=== PATIENT | female | born 1950 | race Caucasian/White ===

== ENCOUNTER 2021-09-25 14:30 | Inpatient (IN) | payer MEDICARE, OTHER, MEDICAID ==
[2021-09-25] MEDS ORDERED: Sodium Chloride 0.9% 10 ML Syringe FLUSH PRN (15:06)
[2021-09-25] MEDS ORDERED: Albuterol 0.083% 2.5 MG/3 ML Neb Soln NEB ONE (15:30)
[2021-09-25] MEDS ORDERED: Albuterol/Ipratropium 3.0-0.5 MG/3 ML Neb Soln NEB ONE (16:22)
[2021-09-25] MEDS ORDERED: methylPREDNISolone Sodium Succinate 125 MG/2 ML SDV IVPUSH ONE (17:14)
[2021-09-25 18:21] LABS: HEMOGLOBIN A1C 7.2 %
[2021-09-25] MEDS: Azithromycin 500 MG in Sodium Chloride 0.9% 250 ML IV SCH (19:02)
[2021-09-25] MEDS: methylPREDNISolone Sodium Succinate 125 MG/2 ML SDV IVPUSH SCH (19:04)
[2021-09-25] MEDS: Insulin Regular, Human 100 Units/ML 3 ML Vial SUBCUT SCH (19:04)
[2021-09-25] MEDS ORDERED: Furosemide 20 MG Tab PO PRN (21:58)
[2021-09-25] MEDS ORDERED: LORazepam 1 MG Tab PO PRN (21:58)
[2021-09-25] MEDS: atorvaSTATin 40 MG Tab PO SCH (22:27)
[2021-09-25] MEDS: oxyCODONE ER 10 MG TAB.ER PO PRN (22:27)
[2021-09-25] MEDS: Dabigatran 75 MG Cap PO SCH (22:28)
[2021-09-26] MEDS: methylPREDNISolone Sodium Succinate 125 MG/2 ML SDV IVPUSH SCH ×3 (02:29→17:24)
[2021-09-26] MEDS: metFORMIN 500 MG Tab PO SCH ×2 (06:16→17:23)
[2021-09-26] MEDS: Pantoprazole 40 MG Tab.CR PO SCH (06:17)
[2021-09-26] MEDS: Levothyroxine 75 MCG Tab PO SCH (06:17)
[2021-09-26] MEDS ORDERED: Magnesium Sulfate/Water 2 GM in Premix Bag 1 BAG IV ONE (07:46)
[2021-09-26] MEDS: Albuterol/Ipratropium 3.0-0.5 MG/3 ML Neb Soln NEB PRN ×3 (08:33→19:47)
[2021-09-26] MEDS: Insulin Regular, Human 100 Units/ML 3 ML Vial SUBCUT SCH ×3 (08:50→18:35)
[2021-09-26] MEDS: Dabigatran 75 MG Cap PO SCH ×2 (08:52→20:21)
[2021-09-26] MEDS: atorvaSTATin 40 MG Tab PO SCH (08:54)
[2021-09-26] MEDS: Metoprolol Succinate 25 MG Tab.ER PO SCH (08:55)
[2021-09-26] MEDS: Montelukast 10 MG Tab PO SCH (08:55)
[2021-09-26] MEDS: PARoxetine 20 MG Tab PO SCH (08:55)
[2021-09-26] MEDS ORDERED: Enoxaparin 40 MG/0.4 ML Syringe SUBCUT SCH (09:00)
[2021-09-26] MEDS: Sodium Chloride 0.9% 1,000 ML IV SCH ×2 (10:29→23:01)
[2021-09-26] MEDS: Codeine/guaiFENesin 10-100 MG/5 ML Syrup 5 ML Cup PO PRN ×3 (11:10→20:24)
[2021-09-26] MEDS: oxyCODONE ER 10 MG TAB.ER PO PRN ×2 (12:12→20:23)
[2021-09-26] MEDS: Azithromycin 500 MG in Sodium Chloride 0.9% 250 ML IV SCH (17:23)
[2021-09-26] MEDS: Temazepam 7.5 MG Cap PO PRN (20:23)
[2021-09-27] MEDS: methylPREDNISolone Sodium Succinate 125 MG/2 ML SDV IVPUSH SCH ×2 (02:46→11:00)
[2021-09-27] MEDS: metFORMIN 500 MG Tab PO SCH ×2 (06:06→17:48)
[2021-09-27] MEDS: Levothyroxine 75 MCG Tab PO SCH (06:07)
[2021-09-27] MEDS: Pantoprazole 40 MG Tab.CR PO SCH (06:07)
[2021-09-27] MEDS: Albuterol/Ipratropium 3.0-0.5 MG/3 ML Neb Soln NEB PRN ×2 (08:14→20:27)
[2021-09-27] MEDS: Metoprolol Succinate 25 MG Tab.ER PO SCH (08:31)
[2021-09-27] MEDS: Dabigatran 75 MG Cap PO SCH ×2 (08:31→19:36)
[2021-09-27] MEDS: Montelukast 10 MG Tab PO SCH (08:31)
[2021-09-27] MEDS: atorvaSTATin 40 MG Tab PO SCH (08:31)
[2021-09-27] MEDS: PARoxetine 20 MG Tab PO SCH (08:32)
[2021-09-27] MEDS: Insulin Regular, Human 100 Units/ML 3 ML Vial SUBCUT SCH ×3 (08:32→18:15)
[2021-09-27] MEDS: Codeine/guaiFENesin 10-100 MG/5 ML Syrup 5 ML Cup PO PRN ×2 (11:00→19:36)
[2021-09-27] MEDS: Benzocaine/Cetylpyridinium/Menthol Lozenge MUCMEM PRN ×2 (12:02→19:36)
[2021-09-27] MEDS: Azithromycin 250 MG Tab PO SCH (17:49)
[2021-09-27] MEDS: oxyCODONE ER 10 MG TAB.ER PO PRN (17:54)
[2021-09-27] MEDS: methylPREDNISolone Sodium Succinate 40 MG/1 ML SDV IVPUSH SCH (19:36)
[2021-09-27] MEDS: Temazepam 7.5 MG Cap PO PRN (21:08)
[2021-09-28] MEDS: Dabigatran 75 MG Cap PO SCH ×3 (00:45→20:13)
[2021-09-28] MEDS: methylPREDNISolone Sodium Succinate 40 MG/1 ML SDV IVPUSH SCH ×3 (00:45→20:14)
[2021-09-28] MEDS: Levothyroxine 75 MCG Tab PO SCH (05:29)
[2021-09-28] MEDS: Pantoprazole 40 MG Tab.CR PO SCH (05:29)
[2021-09-28] MEDS: Codeine/guaiFENesin 10-100 MG/5 ML Syrup 5 ML Cup PO PRN ×3 (05:46→20:15)
[2021-09-28] MEDS: metFORMIN 500 MG Tab PO SCH ×2 (07:00→16:28)
[2021-09-28] MEDS: Benzocaine/Cetylpyridinium/Menthol Lozenge MUCMEM PRN ×4 (08:36→20:13)
[2021-09-28] MEDS: Montelukast 10 MG Tab PO SCH (08:38)
[2021-09-28] MEDS: atorvaSTATin 40 MG Tab PO SCH (08:40)
[2021-09-28] MEDS: oxyCODONE ER 10 MG TAB.ER PO PRN ×2 (08:41→20:13)
[2021-09-28] MEDS: Metoprolol Succinate 25 MG Tab.ER PO SCH (08:45)
[2021-09-28] MEDS: PARoxetine 20 MG Tab PO SCH (08:47)
[2021-09-28] MEDS: Insulin Regular, Human 100 Units/ML 3 ML Vial SUBCUT SCH ×3 (08:48→18:13)
[2021-09-28] MEDS: Albuterol/Ipratropium 3.0-0.5 MG/3 ML Neb Soln NEB PRN ×2 (09:09→16:34)
[2021-09-28] MEDS: Sodium Chloride 0.9% Inhalation Soln 3 ML Neb INH PRN ×2 (11:30→18:17)
[2021-09-28] MEDS: Azithromycin 250 MG Tab PO SCH (18:12)
[2021-09-28] MEDS: Temazepam 7.5 MG Cap PO PRN (20:26)
[2021-09-29] MEDS: Levothyroxine 75 MCG Tab PO SCH (05:54)
[2021-09-29] MEDS: Pantoprazole 40 MG Tab.CR PO SCH (05:54)
[2021-09-29] MEDS: Benzocaine/Cetylpyridinium/Menthol Lozenge MUCMEM PRN ×4 (06:10→21:24)
[2021-09-29] MEDS: Codeine/guaiFENesin 10-100 MG/5 ML Syrup 5 ML Cup PO PRN ×2 (06:10→14:08)
[2021-09-29] MEDS: metFORMIN 500 MG Tab PO SCH ×2 (07:05→17:40)
[2021-09-29] MEDS: Docusate Sodium 100 MG Cap PO PRN ×2 (08:50→21:21)
[2021-09-29] MEDS: Dabigatran 75 MG Cap PO SCH ×2 (08:51→21:23)
[2021-09-29] MEDS: Montelukast 10 MG Tab PO SCH (08:51)
[2021-09-29] MEDS: Metoprolol Succinate 25 MG Tab.ER PO SCH (08:52)
[2021-09-29] MEDS: PARoxetine 20 MG Tab PO SCH (08:52)
[2021-09-29] MEDS: atorvaSTATin 40 MG Tab PO SCH (08:52)
[2021-09-29] MEDS: methylPREDNISolone Sodium Succinate 40 MG/1 ML SDV IVPUSH SCH (08:53)
[2021-09-29] MEDS: Insulin Regular, Human 100 Units/ML 3 ML Vial SUBCUT SCH ×2 (08:54→14:03)
[2021-09-29] MEDS ORDERED: Acetaminophen 325 MG Tab PO PRN (09:33)
[2021-09-29] MEDS: Albuterol/Ipratropium 3.0-0.5 MG/3 ML Neb Soln NEB PRN ×3 (10:07→20:11)
[2021-09-29] MEDS: Sodium Chloride 0.9% Inhalation Soln 3 ML Neb INH PRN ×2 (12:11→18:09)
[2021-09-29] MEDS: oxyCODONE ER 10 MG TAB.ER PO PRN (17:39)
[2021-09-29] MEDS: Azithromycin 250 MG Tab PO SCH (17:39)
[2021-09-29] MEDS: Temazepam 7.5 MG Cap PO PRN (21:21)
[2021-09-30] MEDS: Pantoprazole 40 MG Tab.CR PO SCH (05:57)
[2021-09-30] MEDS: Levothyroxine 75 MCG Tab PO SCH (05:57)
[2021-09-30] MEDS: Codeine/guaiFENesin 10-100 MG/5 ML Syrup 5 ML Cup PO PRN (06:04)
[2021-09-30] MEDS: Benzocaine/Cetylpyridinium/Menthol Lozenge MUCMEM PRN ×2 (06:04→08:26)
[2021-09-30] MEDS: metFORMIN 500 MG Tab PO SCH (06:41)
[2021-09-30] MEDS ORDERED: predniSONE 20 MG Tab PO SCH (07:00)
[2021-09-30] MEDS: Docusate Sodium 100 MG Cap PO PRN (08:27)
[2021-09-30] MEDS: Dabigatran 75 MG Cap PO SCH (08:27)
[2021-09-30] MEDS: PARoxetine 20 MG Tab PO SCH (08:28)
[2021-09-30] MEDS: Montelukast 10 MG Tab PO SCH (08:28)
[2021-09-30] MEDS: atorvaSTATin 40 MG Tab PO SCH (08:28)
[2021-09-30] MEDS: Metoprolol Succinate 25 MG Tab.ER PO SCH (08:28)
[2021-09-30] MEDS: Albuterol/Ipratropium 3.0-0.5 MG/3 ML Neb Soln NEB PRN (08:41)
[2021-09-30] MEDS: Insulin Regular, Human 100 Units/ML 3 ML Vial SUBCUT SCH ×2 (09:00→13:41)
[2021-09-30] MEDS: oxyCODONE ER 10 MG TAB.ER PO PRN (09:26)
== END 2021-09-30 14:25 | disposition home or self-care (01) | DRG 193 ==
LOC: JD.ED 14:30 → JD.MS 17:29
PROVIDERS: ADMIT Internal Medicine; ATTEND Internal Medicine
DX: J18.9 Pneumonia, unspecified organism (principal); J96.21 Acute and chronic respiratory failure with hypoxia; J44.0 Chronic obstructive pulmonary disease with (acute) lower respiratory infection; J44.1 Chronic obstructive pulmonary disease with (acute) exacerbation; Z68.42 Body mass index [BMI] 45.0-49.9, adult; Z88.1 Allergy status to other antibiotic agents; E11.9 Type 2 diabetes mellitus without complications; Z88.8 Allergy status to other drugs, medicaments and biological substances; E66.9 Obesity, unspecified; F41.9 Anxiety disorder, unspecified; F32.A Depression, unspecified; N18.32 Chronic kidney disease, stage 3b; G47.30 Sleep apnea, unspecified; E03.9 Hypothyroidism, unspecified; K58.9 Irritable bowel syndrome, unspecified; Z20.822 Contact with and (suspected) exposure to COVID-19; Z86.718 Personal history of other venous thrombosis and embolism; Z79.899 Other long term (current) drug therapy; Z88.0 Allergy status to penicillin; Z79.01 Long term (current) use of anticoagulants; Z99.81 Dependence on supplemental oxygen; Z88.2 Allergy status to sulfonamides; Z79.890 Hormone replacement therapy; Z79.84 Long term (current) use of oral hypoglycemic drugs
CPT/HCPCS: 36415; 71045; 71045-26; 71250; 71250-26; 80048; 80053; 82947; 83036; 83735; 84145; 85025; 86140; 94640; 94667; 94668; 94760; 94761; 97116-GP; 97162-GP; 99222; 99233; 99239; A9270-GY; J0456; J1815-GY; J2920; J2930; J3475; J7030; J7050; J7512; J7620-GY; U0002

== ENCOUNTER 2022-01-05 12:36 | Emergency (ER) | payer MEDICARE, OTHER, MEDICAID ==
[2022-01-05] MEDS ORDERED: Ondansetron 4 MG/2 ML SDV IVPUSH ONE (14:21)
[2022-01-05] MEDS ORDERED: Sodium Chloride 0.9% 10 ML Syringe FLUSH PRN (14:21)
[2022-01-05] MEDS ORDERED: HYDROmorphone 0.5 MG/0.5 ML Syringe IVPUSH ONE (14:21)
[2022-01-05] MEDS ORDERED: Sodium Chloride 0.9% 1,000 ML IV SCH (14:30)
[2022-01-05] MEDS ORDERED: Iopamidol 612 MG/ML 100 ML Bottle IVPUSH ONE (14:45)
[2022-01-05] MEDS ORDERED: Sodium Chloride 0.9% 10 ML Syringe FLUSH ONE (14:45)
[2022-01-05 15:13] LABS: ESTIMATED GFR 48 mL/min (>60)
[2022-01-05] MEDS ORDERED: Magnesium Oxide 400 MG Tab PO ONE (16:40)
== END 2022-01-05 17:12 | disposition home or self-care (01) ==
LOC: JD.ED 12:36
DX: R10.11 Right upper quadrant pain (principal); R10.13 Epigastric pain; R11.2 Nausea with vomiting, unspecified; K21.9 Gastro-esophageal reflux disease without esophagitis; E11.9 Type 2 diabetes mellitus without complications; E03.9 Hypothyroidism, unspecified; J44.9 Chronic obstructive pulmonary disease, unspecified; E66.9 Obesity, unspecified; Z88.0 Allergy status to penicillin; Z88.2 Allergy status to sulfonamides; Z79.899 Other long term (current) drug therapy; Z79.84 Long term (current) use of oral hypoglycemic drugs; Z68.43 Body mass index [BMI] 50.0-59.9, adult
CPT/HCPCS: 36415; 74177; 80053; 81001; 83690; 83735; 85025; 86140; 87086; 93005; 96361; 96374; 96375; 99284; A9270; J1170; J2405; J3490; J7030; Q9967

== ENCOUNTER 2022-07-07 16:38 | Inpatient (IN) | payer MEDICARE, OTHER, MEDICAID ==
[2022-07-07] MEDS ORDERED: Sodium Chloride 0.9% 10 ML Syringe FLUSH PRN (17:12)
[2022-07-07] MEDS ORDERED: Albuterol 0.083% 2.5 MG/3 ML Neb Soln NEB ONE (17:13)
[2022-07-07] MEDS ORDERED: Ondansetron 4 MG/2 ML SDV IVPUSH ONE (17:27)
[2022-07-07] MEDS ORDERED: REMDESIVIR 200 MG in Sodium Chloride 0.9% 250 ML IV ONE (20:50)
[2022-07-07] MEDS ORDERED: Dexamethasone 10 MG/ML SDV IVPUSH ONE (20:51)
[2022-07-07] MEDS ORDERED: oxyCODONE ER 10 MG TAB.ER PO ONE (21:10)
[2022-07-07] MEDS ORDERED: Dabigatran 75 MG Cap PO ONE (21:11)
[2022-07-07] MEDS ORDERED: metFORMIN 500 MG Tab PO ONE (21:11)
[2022-07-08] MEDS ORDERED: metFORMIN 500 MG Tab PO ONE
[2022-07-08] MEDS ORDERED: Dabigatran 75 MG Cap PO ONE
[2022-07-08] MEDS ORDERED: Dexamethasone 10 MG/ML SDV IVPUSH ONE
[2022-07-08] MEDS ORDERED: REMDESIVIR 200 MG in Sodium Chloride 0.9% 250 ML IV ONE ×2
[2022-07-08] MEDS ORDERED: oxyCODONE ER 10 MG TAB.ER PO ONE
[2022-07-08] MEDS ORDERED: LORazepam 1 MG Tab PO PRN (06:25)
[2022-07-08] MEDS ORDERED: Furosemide 20 MG Tab PO PRN (06:25)
[2022-07-08] MEDS ORDERED: Carboxymethylcellulose Sodium 1% Ophth Gel 15 ML Bottle EYEBOTH PRN (06:25)
[2022-07-08] MEDS ORDERED: Albuterol 6.7 GM Inhaler INH PRN (06:25)
[2022-07-08] MEDS ORDERED: Calcium Carbonate 500 MG Tab.Chew PO PRN (06:25)
[2022-07-08] MEDS: metFORMIN 500 MG Tab PO SCH ×2 (07:08→17:20)
[2022-07-08] MEDS: Pantoprazole 40 MG Tab.CR PO SCH (07:08)
[2022-07-08] MEDS ORDERED: Albuterol 0.021% 0.63 MG/3 ML Neb Soln NEB SCH (09:00)
[2022-07-08] MEDS ORDERED: Levalbuterol HCl 0.63 MG/3 ML Neb NEB SCH (09:00)
[2022-07-08] MEDS ORDERED: UMECLIDIN INH SCH (09:00)
[2022-07-08] MEDS ORDERED: VILANTER INH SCH (09:00)
[2022-07-08] MEDS ORDERED: FLUTICASONE INH SCH ×2 (09:00→21:00)
[2022-07-08] MEDS: Albuterol 0.083% 2.5 MG/3 ML Neb Soln NEB PRN ×3 (09:23→20:40)
[2022-07-08] MEDS: Formoterol/Mometasone 200-5 MCG 8.8 GM Inhaler IH SCH ×2 (09:44→20:40)
[2022-07-08] MEDS ORDERED: Albuterol 0.083% 2.5 MG/3 ML Neb Soln NEB SCH (10:00)
[2022-07-08] MEDS: Metoprolol Succinate 25 MG Tab.ER PO SCH (10:14)
[2022-07-08] MEDS: Acetaminophen/oxyCODONE 325-5 MG Tab PO PRN ×2 (10:14→20:15)
[2022-07-08] MEDS: Furosemide 20 MG Tab PO SCH (10:14)
[2022-07-08] MEDS: Dexamethasone 4 MG Tab PO SCH (10:14)
[2022-07-08] MEDS: Dabigatran 75 MG Cap PO SCH ×2 (10:15→20:17)
[2022-07-08] MEDS: Montelukast 10 MG Tab PO SCH (10:15)
[2022-07-08] MEDS: Levothyroxine 75 MCG Tab PO SCH (10:15)
[2022-07-08] MEDS: Triamcinolone Acetonide 0.1% Crm 15 GM Tube TOP SCH (10:19)
[2022-07-08] MEDS: Azithromycin 500 MG in Sodium Chloride 0.9% 250 ML IV SCH (13:31)
[2022-07-08] MEDS ORDERED: Phenol 1.4% Oral Spray 177 ML Bottle MUCMEM PRN (13:32)
[2022-07-08] MEDS: atorvaSTATin 40 MG Tab PO SCH (20:16)
[2022-07-08] MEDS: DULoxetine 30 MG Cap PO SCH (20:17)
[2022-07-08] MEDS ORDERED: SALMETEROL INH SCH (21:00)
[2022-07-08] MEDS ORDERED: Loperamide 2 MG Cap PO ONE (22:06)
[2022-07-08] MEDS: REMDESIVIR 100 MG in Sodium Chloride 0.9% 250 ML IV SCH (22:40)
[2022-07-08] MEDS: oxyCODONE ER 10 MG TAB.ER PO PRN (23:57)
[2022-07-09] MEDS: Pantoprazole 40 MG Tab.CR PO SCH (05:17)
[2022-07-09] MEDS: metFORMIN 500 MG Tab PO SCH (06:18)
[2022-07-09] MEDS: Formoterol/Mometasone 200-5 MCG 8.8 GM Inhaler IH SCH ×2 (08:00→20:52)
[2022-07-09] MEDS: Albuterol 0.083% 2.5 MG/3 ML Neb Soln NEB PRN ×3 (08:00→20:52)
[2022-07-09] MEDS: Dabigatran 75 MG Cap PO SCH ×2 (08:42→21:11)
[2022-07-09] MEDS: Dexamethasone 4 MG Tab PO SCH (08:43)
[2022-07-09] MEDS: Montelukast 10 MG Tab PO SCH (08:43)
[2022-07-09] MEDS: Furosemide 20 MG Tab PO SCH (08:43)
[2022-07-09] MEDS: Levothyroxine 75 MCG Tab PO SCH (08:43)
[2022-07-09] MEDS: Metoprolol Succinate 25 MG Tab.ER PO SCH (08:44)
[2022-07-09] MEDS: Triamcinolone Acetonide 0.1% Crm 15 GM Tube TOP SCH (08:45)
[2022-07-09] MEDS: PARoxetine 20 MG Tab PO SCH (08:51)
[2022-07-09] MEDS ORDERED: Magnesium Sulfate/Water 2 GM in Premix Bag 1 BAG IV ONE (10:16)
[2022-07-09] MEDS ORDERED: Acetaminophen 325 MG Tab PO PRN (10:39)
[2022-07-09] MEDS: Lidocaine 4% 1 each Patch TOP SCH (11:28)
[2022-07-09] MEDS: Benzocaine/Cetylpyridinium/Menthol Lozenge MUCMEM PRN (11:31)
[2022-07-09] MEDS: Insulin Lispro 100 Unit/ML 3 ML KwikPen SUBCUT SCH ×2 (11:45→16:50)
[2022-07-09] MEDS: Azithromycin 500 MG in Sodium Chloride 0.9% 250 ML IV SCH (13:37)
[2022-07-09] MEDS: guaiFENesin/Dextromethorphan 100-10 MG/5 ML Soln 5 ML Cup PO SCH ×2 (14:32→21:11)
[2022-07-09] MEDS: oxyCODONE ER 10 MG TAB.ER PO PRN (14:33)
[2022-07-09] MEDS: DULoxetine 30 MG Cap PO SCH (21:12)
[2022-07-09] MEDS: atorvaSTATin 40 MG Tab PO SCH (21:12)
[2022-07-09] MEDS: REMDESIVIR 100 MG in Sodium Chloride 0.9% 250 ML IV SCH (21:12)
[2022-07-10] MEDS: guaiFENesin/Dextromethorphan 100-10 MG/5 ML Soln 5 ML Cup PO SCH ×3 (06:14→20:01)
[2022-07-10] MEDS: Pantoprazole 40 MG Tab.CR PO SCH (06:14)
[2022-07-10] MEDS: oxyCODONE ER 10 MG TAB.ER PO PRN ×2 (06:21→18:41)
[2022-07-10] MEDS: Benzocaine/Cetylpyridinium/Menthol Lozenge MUCMEM PRN (06:21)
[2022-07-10] MEDS: Insulin Lispro 100 Unit/ML 3 ML KwikPen SUBCUT SCH ×3 (08:04→17:08)
[2022-07-10] MEDS: Dabigatran 75 MG Cap PO SCH ×2 (08:41→20:01)
[2022-07-10] MEDS: Levothyroxine 75 MCG Tab PO SCH (08:48)
[2022-07-10] MEDS: Metoprolol Succinate 25 MG Tab.ER PO SCH (08:48)
[2022-07-10] MEDS: Dexamethasone 4 MG Tab PO SCH (08:50)
[2022-07-10] MEDS: Montelukast 10 MG Tab PO SCH (08:50)
[2022-07-10] MEDS: Furosemide 20 MG Tab PO SCH (08:50)
[2022-07-10] MEDS: PARoxetine 20 MG Tab PO SCH (08:50)
[2022-07-10] MEDS: Lidocaine 4% 1 each Patch TOP SCH (08:51)
[2022-07-10] MEDS: Formoterol/Mometasone 200-5 MCG 8.8 GM Inhaler IH SCH ×2 (09:00→20:31)
[2022-07-10] MEDS: Albuterol 0.083% 2.5 MG/3 ML Neb Soln NEB PRN ×4 (09:00→20:31)
[2022-07-10] MEDS: Triamcinolone Acetonide 0.1% Crm 15 GM Tube TOP SCH (09:12)
[2022-07-10] MEDS: Azithromycin 500 MG in Sodium Chloride 0.9% 250 ML IV SCH (11:24)
[2022-07-10] MEDS: DULoxetine 30 MG Cap PO SCH (20:01)
[2022-07-10] MEDS: atorvaSTATin 40 MG Tab PO SCH (20:01)
[2022-07-10] MEDS: REMDESIVIR 100 MG in Sodium Chloride 0.9% 250 ML IV SCH (21:16)
[2022-07-11] MEDS: guaiFENesin/Dextromethorphan 100-10 MG/5 ML Soln 5 ML Cup PO SCH ×3 (06:03→21:33)
[2022-07-11] MEDS: Pantoprazole 40 MG Tab.CR PO SCH (06:04)
[2022-07-11] MEDS: oxyCODONE ER 10 MG TAB.ER PO PRN ×2 (06:07→21:31)
[2022-07-11] MEDS: Albuterol 0.083% 2.5 MG/3 ML Neb Soln NEB PRN ×3 (08:46→20:35)
[2022-07-11] MEDS: Formoterol/Mometasone 200-5 MCG 8.8 GM Inhaler IH SCH ×2 (08:47→20:35)
[2022-07-11] MEDS: Lidocaine 4% 1 each Patch TOP SCH (09:08)
[2022-07-11] MEDS: Dabigatran 75 MG Cap PO SCH ×2 (09:08→21:32)
[2022-07-11] MEDS: Insulin Lispro 100 Unit/ML 3 ML KwikPen SUBCUT SCH ×3 (09:08→17:43)
[2022-07-11] MEDS: Levothyroxine 75 MCG Tab PO SCH (09:09)
[2022-07-11] MEDS: PARoxetine 20 MG Tab PO SCH (09:09)
[2022-07-11] MEDS: Montelukast 10 MG Tab PO SCH (09:09)
[2022-07-11] MEDS: Metoprolol Succinate 25 MG Tab.ER PO SCH (09:09)
[2022-07-11] MEDS: Furosemide 20 MG Tab PO SCH (09:09)
[2022-07-11] MEDS: Dexamethasone 4 MG Tab PO SCH (09:09)
[2022-07-11] MEDS: Triamcinolone Acetonide 0.1% Crm 15 GM Tube TOP SCH (09:10)
[2022-07-11] MEDS ORDERED: Magnesium Sulfate/Water 2 GM in Premix Bag 1 BAG IV ONE (09:28)
[2022-07-11] MEDS ORDERED: Diclofenac Sodium 1% Gel 100 GM Tube TOP PRN (11:48)
[2022-07-11] MEDS: DULoxetine 30 MG Cap PO SCH (21:32)
[2022-07-11] MEDS: atorvaSTATin 40 MG Tab PO SCH (21:33)
[2022-07-11] MEDS: REMDESIVIR 100 MG in Sodium Chloride 0.9% 250 ML IV SCH (21:33)
[2022-07-12] MEDS: Pantoprazole 40 MG Tab.CR PO SCH (07:32)
[2022-07-12] MEDS: guaiFENesin/Dextromethorphan 100-10 MG/5 ML Soln 5 ML Cup PO SCH (07:32)
[2022-07-12] MEDS: Insulin Lispro 100 Unit/ML 3 ML KwikPen SUBCUT SCH ×2 (08:32→11:58)
[2022-07-12] MEDS: Furosemide 20 MG Tab PO SCH (08:33)
[2022-07-12] MEDS: Dexamethasone 4 MG Tab PO SCH (08:34)
[2022-07-12] MEDS: Montelukast 10 MG Tab PO SCH (08:34)
[2022-07-12] MEDS: Metoprolol Succinate 25 MG Tab.ER PO SCH (08:34)
[2022-07-12] MEDS: PARoxetine 20 MG Tab PO SCH (08:35)
[2022-07-12] MEDS: Levothyroxine 75 MCG Tab PO SCH (08:35)
[2022-07-12] MEDS: Dabigatran 75 MG Cap PO SCH (08:36)
[2022-07-12] MEDS: Triamcinolone Acetonide 0.1% Crm 15 GM Tube TOP SCH (08:38)
[2022-07-12] MEDS: Lidocaine 4% 1 each Patch TOP SCH (08:44)
[2022-07-12] MEDS: oxyCODONE ER 10 MG TAB.ER PO PRN (08:45)
[2022-07-12] MEDS ORDERED: Magnesium Oxide 400 MG Tab PO SCH (09:00)
[2022-07-12] MEDS: Albuterol 0.083% 2.5 MG/3 ML Neb Soln NEB PRN (09:01)
[2022-07-12] MEDS: Formoterol/Mometasone 200-5 MCG 8.8 GM Inhaler IH SCH (09:01)
== END 2022-07-12 14:25 | disposition home or self-care (01) | DRG 177 ==
LOC: JD.ED 16:38 → JD.MS 20:51
PROVIDERS: ADMIT Internal Medicine; ATTEND Internal Medicine
PROC: 8E0ZXY6 Isolation (ICD-10-PCS; 2022-07-07)
PROC: XW033E5 Introduction of Remdesivir Anti-infective into Peripheral Vein, Percutaneous Approach, New Technology Group 5 (ICD-10-PCS; principal; 2022-07-08)
PROC: 3E0333Z Introduction of Anti-inflammatory into Peripheral Vein, Percutaneous Approach (ICD-10-PCS; principal; 2022-07-08)
DX: U07.1 COVID-19 (principal); J96.21 Acute and chronic respiratory failure with hypoxia; J44.9 Chronic obstructive pulmonary disease, unspecified; E11.9 Type 2 diabetes mellitus without complications; J44.1 Chronic obstructive pulmonary disease with (acute) exacerbation; Z68.42 Body mass index [BMI] 45.0-49.9, adult; F41.9 Anxiety disorder, unspecified; Z66 Do not resuscitate; R91.8 Other nonspecific abnormal finding of lung field; Z96.612 Presence of left artificial shoulder joint; Z96.611 Presence of right artificial shoulder joint; M25.551 Pain in right hip; G89.29 Other chronic pain; R07.0 Pain in throat; M25.562 Pain in left knee; E83.42 Hypomagnesemia; N18.32 Chronic kidney disease, stage 3b; G47.33 Obstructive sleep apnea (adult) (pediatric); M15.9 Polyosteoarthritis, unspecified; E11.22 Type 2 diabetes mellitus with diabetic chronic kidney disease; F32.A Depression, unspecified; E66.9 Obesity, unspecified; E03.9 Hypothyroidism, unspecified; Z88.0 Allergy status to penicillin; Z88.2 Allergy status to sulfonamides; Z79.1 Long term (current) use of non-steroidal anti-inflammatories (NSAID); Z79.52 Long term (current) use of systemic steroids; Z79.890 Hormone replacement therapy; Z97.3 Presence of spectacles and contact lenses; Z86.16 Personal history of COVID-19; Z98.42 Cataract extraction status, left eye; Z98.41 Cataract extraction status, right eye; Z90.49 Acquired absence of other specified parts of digestive tract; Z90.89 Acquired absence of other organs; Z98.890 Other specified postprocedural states; Z79.01 Long term (current) use of anticoagulants; Z86.718 Personal history of other venous thrombosis and embolism; Z79.899 Other long term (current) drug therapy; Z88.8 Allergy status to other drugs, medicaments and biological substances; Z99.81 Dependence on supplemental oxygen; Z79.84 Long term (current) use of oral hypoglycemic drugs
CPT/HCPCS: 0241U; 36415; 71045; 71046; 80048; 80053; 82947; 83735; 83880; 84484; 85025; 85379; 85610; 85730; 86140; 86738; 87641; 87651; 93005; 94640; 94667; 94668; 94761; 96374; 97110; 97116; 97162; 97530; 99214; 99285; 99222; 99233; A9270-GY; J0248; J0456; J1100; J1815; J2405; J3475; J7050; J7620-GY; J8540

== ENCOUNTER 2024-02-22 13:40 | Emergency (ER) | payer MEDICARE, OTHER, MEDICAID ==
[2024-02-22] MEDS: Sodium Chloride 0.9% 10 ML Syringe FLUSH PRN (14:10)
[2024-02-22 14:19] LABS: BASOPHILS ABSOLUTE AUTO 0.1 K/mm3 (0.0-0.2); BASOPHILS PERCENT AUTO 0.5 % (0.0-1.0); EOSINOPHILS ABSOLUTE AUTO 0.4 K/mm3 (0.0-0.4); EOSINOPHILS PERCENT AUTO 3.9 % (0.0-6.0); HEMATOCRIT 33.5 % (37.0-47.0); HEMOGLOBIN 10.4 gm/dl (12.0-16.0); IMMATURE GRAN ABSOLUTE AUTO 0.03 K/mm3 (0.00-0.05); IMMATURE GRAN PERCENT AUTO 0.3 % (0.0-0.4); LYMPHOCYTES ABSOLUTE AUTO 2.1 K/mm3 (1.0-4.8); LYMPHOCYTES PERCENT AUTO 21.4 % (24.0-44.0); MEAN CORPUSCULAR HEMOGLOBIN 27.4 pg (28.0-32.0); MEAN CORPUSCULAR VOLUME 88.2 fl (83.0-99.0); MEAN PLATELET VOLUME 10.7 fl (9.4-12.3); MONOCYTES ABSOLUTE AUTO 0.7 K/mm3 (0.0-0.8); MONOCYTES PERCENT AUTO 7.3 % (0.0-8.0); NEUTROPHILS ABSOLUTE AUTO 6.6 K/mm3 (1.8-7.7); NEUTROPHILS PERCENT AUTO 66.6 % (41.0-71.0); PLATELET COUNT,PLT 311 K/mm3 (150-400)
[2024-02-22 14:37] LABS: D-DIMER QUANTITATIVE 0.38 mg/L (0.19-0.50)
[2024-02-22 14:38] LABS: PTT,PARTIAL THROMBOPLSTIN TIME 36.7 SECONDS (21.7-31.4)
[2024-02-22] MEDS: Aspirin 81 MG Tab.Chew PO ONE (14:42)
[2024-02-22 14:53] LABS: A/G RATIO 0.9 (1-2); ALBUMIN 3.6 g/dl (3.4-5.0); ANION GAP 19.4 (5-15); BILIRUBIN TOTAL 0.4 mg/dL (0.2-1.0); BUN/CREATININE RATIO 16.3 (14-18); CALCIUM 9.8 mg/dL (8.5-10.1); CREATININE 1.6 mg/dL (0.55-1.02); EST CRCL DRUG DOSING (CG) 22.49 mL/min; MAGNESIUM 1.9 mg/dL (1.8-2.4); PROTEIN TOTAL,TP 7.6 g/dl (6.4-8.2)
[2024-02-22 14:57] LABS: POTASSIUM,K 5.4 mEq/L (3.5-5.1)
[2024-02-22] MEDS ORDERED: Sodium Chloride 0.9% 10 ML Syringe FLUSH PRN (15:23)
[2024-02-22] MEDS: Ondansetron 4 MG/2 ML SDV IVPUSH ONE (16:20)
[2024-02-22] MEDS: Sodium Chloride 0.9% 1,000 ML IV ONE (16:46)
[2024-02-22] MEDS: LORazepam 2 MG/ML SDV IVPUSH ONE (18:58)
[2024-02-22 19:05] LABS: APPEARANCE,URINE CLEAR (Clear); BILIRUBIN,URINE NEGATIVE (Negative); COLOR,URINE LIGHT YELLOW (Yellow); GLUCOSE,URINE 2+ (Negative); KETONES,URINE NEGATIVE (Negative); LEUKOCYTE ESTERASE,URINE NEGATIVE (Negative); NITRITE,URINE NEGATIVE (Negative); OCCULT BLOOD,URINE NEGATIVE (Negative); PROTEIN,URINE NEGATIVE (Negative); UROBILINOGEN,URINE 0.2 (0.2-1.0)
[2024-02-22] MEDS: Iopamidol 755 Mg/ML 100 ML Bottle IVPUSH ONE (19:44)
[2024-02-22] MEDS: Sodium Chloride 0.9% 1,000 ML IV SCH (20:01)
[2024-02-22 21:48] LABS: LACTIC ACID 2.8 mmol/L (0.4-2.0)
[2024-02-22] MEDS: Acetaminophen 325 MG Tab PO ONE (22:57)
== END 2024-02-22 23:35 | disposition home or self-care (01) ==
LOC: JD.ED 13:40
DX: R07.9 Chest pain, unspecified (principal); D64.9 Anemia, unspecified; E86.0 Dehydration; E03.9 Hypothyroidism, unspecified; E66.9 Obesity, unspecified; Z68.42 Body mass index [BMI] 45.0-49.9, adult; Z90.49 Acquired absence of other specified parts of digestive tract; Z90.710 Acquired absence of both cervix and uterus; Z88.2 Allergy status to sulfonamides; Z88.8 Allergy status to other drugs, medicaments and biological substances; Z88.0 Allergy status to penicillin; Z79.899 Other long term (current) drug therapy; Z79.890 Hormone replacement therapy; Z79.891 Long term (current) use of opiate analgesic; I10 Essential (primary) hypertension
CPT/HCPCS: 36415; 71045; 74177; 80053; 81003; 83605; 83690; 83735; 83880; 84132; 84484; 85025; 85379; 85730; 87040; 93005; 96361; 96374; 96375; 99285; A9270; J2060; J2405; J3490; J7030; Q9967; U0002; 93010; 99284

== ENCOUNTER 2024-02-23 12:37 | Emergency (ER) | payer MEDICARE, OTHER, MEDICAID ==
[2024-02-23 13:14] LABS: APPEARANCE,URINE CLEAR (Clear); BILIRUBIN,URINE NEGATIVE (Negative); COLOR,URINE LIGHT YELLOW (Yellow); GLUCOSE,URINE 2+ (Negative); KETONES,URINE NEGATIVE (Negative); LEUKOCYTE ESTERASE,URINE NEGATIVE (Negative); NITRITE,URINE NEGATIVE (Negative); OCCULT BLOOD,URINE NEGATIVE (Negative); PROTEIN,URINE NEGATIVE (Negative); UROBILINOGEN,URINE 0.2 (0.2-1.0)
[2024-02-23 13:39] LABS: BASOPHILS PERCENT AUTO 0.4 % (0.0-1.0); EOSINOPHILS ABSOLUTE AUTO 0.3 K/mm3 (0.0-0.4); HEMATOCRIT 32.7 % (37.0-47.0); HEMOGLOBIN 10.4 gm/dl (12.0-16.0); IMMATURE GRAN ABSOLUTE AUTO 0.04 K/mm3 (0.00-0.05); IMMATURE GRAN PERCENT AUTO 0.4 % (0.0-0.4); LYMPHOCYTES ABSOLUTE AUTO 1.8 K/mm3 (1.0-4.8); LYMPHOCYTES PERCENT AUTO 19.1 % (24.0-44.0); MEAN CORPUSCULAR HEMOGLOBIN 27.3 pg (28.0-32.0); MEAN CORPUSCULAR HGB CONC 31.8 g/dl (32.0-36.0); MEAN CORPUSCULAR VOLUME 85.8 fl (83.0-99.0); MEAN PLATELET VOLUME 10.5 fl (9.4-12.3); MONOCYTES ABSOLUTE AUTO 0.6 K/mm3 (0.0-0.8); MONOCYTES PERCENT AUTO 6.6 % (0.0-8.0); NEUTROPHILS ABSOLUTE AUTO 6.7 K/mm3 (1.8-7.7); NEUTROPHILS PERCENT AUTO 70.5 % (41.0-71.0); PLATELET COUNT,PLT 384 K/mm3 (150-400); RED BLOOD CELL COUNT 3.81 M/mm3 (4.10-5.30); WHITE BLOOD CELL COUNT,WBC 9.51 K/mm3 (3.9-11.3)
[2024-02-23] MEDS: Ondansetron 4 MG/2 ML SDV IVPUSH ONE (13:46)
[2024-02-23] MEDS: Sodium Chloride 0.9% 1,000 ML IV ONE ×2 (13:46→20:27)
[2024-02-23 14:07] LABS: ALBUMIN 3.9 g/dl (3.4-5.0); ANION GAP 18.1 (5-15); BILIRUBIN TOTAL 0.4 mg/dL (0.2-1.0); BUN/CREATININE RATIO 14.7 (14-18); CREATININE 1.7 mg/dL (0.55-1.02); EST CRCL DRUG DOSING (CG) 21.17 mL/min; POTASSIUM,K 4.1 mEq/L (3.5-5.1); PROTEIN TOTAL,TP 7.7 g/dl (6.4-8.2)
[2024-02-23 14:14] LABS: MAGNESIUM 1.8 mg/dL (1.8-2.4)
[2024-02-23] MEDS: Levofloxacin/Dextrose 5%-Water 750 MG in Premix Bag 1 BAG IV ONE (14:40)
[2024-02-23] MEDS: LORazepam 2 MG/ML SDV IVPUSH ONE (15:25)
[2024-02-23] MEDS: Iopamidol 612 MG/ML 100 ML Bottle IVPUSH ONE (16:06)
[2024-02-23] MEDS: Sodium Chloride 0.9% 10 ML Syringe FLUSH PRN (16:08)
[2024-02-23 18:20] LABS: C-REACTIVE PROTEIN 0.19 mg/dL (<0.30)
[2024-02-23 19:57] LABS: LACTIC ACID 2.4 mmol/L (0.4-2.0)
== END 2024-02-24 00:37 | disposition home or self-care (01) ==
LOC: JD.ED 12:37
DX: E86.0 Dehydration (principal); I10 Essential (primary) hypertension; E03.9 Hypothyroidism, unspecified; E11.9 Type 2 diabetes mellitus without complications; Z90.49 Acquired absence of other specified parts of digestive tract; Z90.710 Acquired absence of both cervix and uterus; Z86.16 Personal history of COVID-19; Z79.899 Other long term (current) drug therapy; Z79.890 Hormone replacement therapy; Z79.84 Long term (current) use of oral hypoglycemic drugs; Z88.0 Allergy status to penicillin; Z88.2 Allergy status to sulfonamides; Z88.8 Allergy status to other drugs, medicaments and biological substances
CPT/HCPCS: 36415; 71045; 74177; 80053; 81003; 82550; 83605; 83735; 83880; 84484; 85025; 86140; 87507; 93005; 96361; 96365; 96366; 96375; 99285; J1956; J2060; J2405; J3490; J7030; Q9967; 93010; 99284